=== PATIENT | female | born 1985 | race Hispanic/Latino ===

== ENCOUNTER 2021-05-31 12:23 | Emergency (ER) | payer OTHER ==
[~2021-05-31] VITALS: Ht 162.6 cm; Wt 83.5 kg
[2021-05-31] MEDS ORDERED: GUAIFENESIN-CODEINE 5 ML SYRUP PO ONE (13:00)
[2021-05-31] MEDS ORDERED: IPRATROPIUM/ALBUTEROL SULFATE 3 ML SOLUTION IH ONE ×2 (13:00)
[2021-05-31] MEDS ORDERED: IBUPROFEN 600 MG TABLET PO ONE (13:00)
[2021-05-31] MEDS ORDERED: ALBUTEROL INHALER 90MCG/INH IH ONE (13:23)
[2021-05-31] MEDS: DEXAMETHASONE SOD PHOSPHATE 10MG/ML 1ML VIAL IVP SCH ×2 (13:24→13:32)
[2021-05-31 13:26] LABS: BASOPHILS % (AUTO) 0.2 % (0.0-5.0); HEMATOCRIT 36.9 % (36-48); LYMPHOCYTES % (AUTO) 17.3 % (21.0-51.0); MEAN CORPUSCULAR HGB CONC 33.6 g/dL (32.0-36.0); MEAN CORPUSCULAR VOLUME 89.1 fL (79-99); MONOCYTES % (AUTO) 5.9 % (3.0-13.0); PLATELET COUNT (AUTO) 267 K/uL (130-400); RED BLOOD CELL COUNT(AUTO) 4.14 MIL/uL (4.00-5.50); RED CELL DISTRIBUTION WIDTH 12.6 % (11.0-15.5); WHITE BLOOD COUNT (AUTO) 5.1 K/uL (4.8-10.8)
[2021-05-31] MEDS ORDERED: ALBUTEROL INHALER 90MCG/INH IH PRN (13:30)
[2021-05-31 13:40] LABS: CREATININE 0.8 mg/dL (0.5-1.5); POTASSIUM 3.5 mmol/L (3.5-5.1)
[2021-05-31 13:44] LABS: ALBUMIN 3.4 g/dL (3.5-5.0); BILIRUBIN,TOTAL 0.5 mg/dL (0.2-1.0); CRP QUANTITATIVE 35.2 mg/L (0.00-9.0); TOTAL PROTEIN, SERUM 7.7 g/dL (6.0-8.3)
[2021-05-31] MEDS ORDERED: DOXYCYCLINE HYCLATE 100 MG TABLET PO ONE (14:30)
[2021-05-31] MEDS ORDERED: DOXYCYCLINE HYCLATE 100 MG TABLET PO SCH (14:30)
[2021-05-31 14:38] VITALS: BP 99/65
[2021-05-31] MEDS ORDERED: DOXY-336 PO (14:50)
[2021-05-31] MEDS ORDERED: CEFU250T87 PO (14:50)
[2021-05-31] MEDS ORDERED: GUAIFACSF PO (14:50)
[2021-05-31] MEDS ORDERED: ALBU90AE2 IH (14:50)
[2021-05-31] MEDS ORDERED: DEXA6TAB7 PO (14:50)
== END 2021-05-31 15:14 | disposition home or self-care (01) ==
LOC: EDH 12:23
DX: U07.1 COVID-19 (principal); J12.82 Pneumonia due to coronavirus disease 2019; I10 Essential (primary) hypertension; Z79.1 Long term (current) use of non-steroidal anti-inflammatories (NSAID); Z79.52 Long term (current) use of systemic steroids; Z79.899 Other long term (current) drug therapy; Z88.0 Allergy status to penicillin
CPT/HCPCS: 36415; 71045; 80053; 82550; 84484; 85025; 86140; 87635; 87804 ×2; 96374; 99291; C9803; J1100